=== PATIENT | male | born 1955 | race Caucasian/White ===

== ENCOUNTER 2020-10-09 17:02 | Observation (INO) ==
[2020-10-09] MEDS ORDERED: Naloxone 0.4 MG/ML INJ IVP PRN (20:28)
[2020-10-09] MEDS ORDERED: Dextrose Gel 15 GM/37.5 ML TUBE PO PRN ×2 (20:31)
[2020-10-09] MEDS ORDERED: *HR* Dextrose 50 % in Water (Vial) 50 ML VIAL IVP PRN (20:31)
[2020-10-09] MEDS ORDERED: D5% in Water 1,000 ML IVC PRN (20:31)
[2020-10-09] MEDS ORDERED: Perflutren Lipid Microsphere 1.3 ML in 0.9 % Sodium Chloride 8.7 ML IVP PRN (20:35)
[2020-10-09] MEDS ORDERED: Ondansetron 4 MG/2 ML VIAL IVP PRN (20:36)
[2020-10-09] MEDS ORDERED: Nitroglycerin 0.4 MG TAB.SUBL SL PRN (20:36)
[2020-10-09 21:41] LABS: Estimated Average Glucose 169 mg/dl; Hemoglobin A1C 7.5 %
[2020-10-09 21:56] LABS: Albumin 4.7 g/dL (3.5-5.7); Albumin/Globulin Ratio 1.5 (1.1-2.2); Bilirubin,Direct 0.1 mg/dL (0.0-0.2); Bilirubin,Indirect 0.5 mg/dL (0.0-1.0); Bilirubin,Total 0.6 mg/dL (0.3-1.0); Chol/HDL Ratio 3.8 (0-4.9); Globulin 3.1 g/dL (2.4-3.5); Phosphorous 3.5 mg/dL (2.7-4.5); Total Protein 7.8 g/dL (6.4-8.9)
[2020-10-09 22:09] LABS: Thyroid Stimulating Hormone 8.422 mcIU/mL (0.340-5.600)
[2020-10-09] MEDS: lisinopriL 10 MG TABLET PO SCH (22:31)
[2020-10-10 00:35] LABS: Basophils % 0.6 %; Eosinophils # 0.2 K/mcL (0.0-0.6); Eosinophils % 2.3 %; Hematocrit 43.5 % (37.5-50.1); Hemoglobin 14.9 g/dL (12.9-16.9); Immature Granulocytes % 0.3 % (0-4); Lymphocytes # 1.5 K/mcL (0.6-4.6); Mean Corpuscular HGB Conc 34.3 g/dL (31.6-35.5); Mean Corpuscular Hemoglobin 30.2 pg (28.0-33.3); Mean Corpuscular Volume 88.1 fL (83.0-100.0); Mean Platelet Volume 10.2 fL (9.4-12.4); Monocytes # 0.7 K/mcL (0.0-1.3); Monocytes % 9.8 %; Neutrophils # 4.5 K/mcL (1.6-8.9); Platelet Count 162 K/mcL (140-400); Red Blood Count 4.94 M/mcL (4.19-5.50); Red Cell Distribution Width 12.6 % (11.5-14.5)
[2020-10-10 00:53] LABS: BUN/Creatinine Ratio 13 (6-26); Blood Urea Nitrogen 14 mg/dL (8-23); Calcium 9.2 mg/dL (8.6-10.3); Carbon Dioxide 27 mEq/L (23-29); Chloride 104 mEq/L (98-107); Glucose 240 mg/dL (70-105); Osmolality,Calculated 300 (280-300); Potassium 3.9 mEq/L (3.5-5.1); Sodium 141 mEq/L (136-145); eGFR For African Americans > 60 (> 60); eGFR For Non-African Americans > 60 (> 60)
[2020-10-10 02:16] LABS: Amphetamine Screen,Urine Negative ng/mL (Cutoff=1000); Barbiturate Screen,Urine Negative ng/mL (Cutoff=200); Benzodiazepines Screen,Urine Negative ng/mL (Cutoff=200); Cannabinoid Screen,Urine Negative ng/mL (Cutoff = 50); Cocaine Screen,Urine Negative ng/mL (Cutoff= 300); Opiate Screen,Urine Negative ng/mL (Cutoff=300); Phencyclidine Screen,Urine Negative ng/mL (Cutoff=25)
[2020-10-10] MEDS ORDERED: Regadenoson 0.4 MG/5 ML SYRINGE IVP ONE (05:56)
[2020-10-10] MEDS: *HR* Heparin 5,000 UNIT/ML VIAL SQ SCH ×2 (06:13→17:47)
[2020-10-10] MEDS: Insulin LISPRO 300 UNITS/3 ML VIAL SUBQ SCH ×3 (09:38→17:46)
[2020-10-10] MEDS: lisinopriL 10 MG TABLET PO SCH (10:19)
[2020-10-10] MEDS: predniSONE 20 MG TABLET PO SCH ×2 (17:46→23:18)
[2020-10-11] MEDS: *HR* Heparin 5,000 UNIT/ML VIAL SQ SCH ×2 (05:06→16:31)
[2020-10-11] MEDS: predniSONE 20 MG TABLET PO SCH (05:06)
[2020-10-11] MEDS: Insulin LISPRO 300 UNITS/3 ML VIAL SUBQ SCH ×3 (07:26→16:39)
[2020-10-11] MEDS: lisinopriL 10 MG TABLET PO SCH (08:11)
[2020-10-11] MEDS: Aspirin 81 MG TAB.CHEW PO SCH (08:11)
[2020-10-11] MEDS ORDERED: ISOVUE-370 200 ML INFUS..BTL ONE ×2 (08:50→11:51)
[2020-10-11] MEDS ORDERED: *HR* Heparin 10,000 UNIT/10 ML VIAL ONE (08:50)
[2020-10-11] MEDS ORDERED: Nitroglycerin 1,000 MCG/5 ML VIAL IV ONE (08:50)
[2020-10-11] MEDS ORDERED: Heparin 1,000 UNITS/500 mL 500 ML ONE (08:50)
[2020-10-11] MEDS ORDERED: 0.9 % Sodium Chloride 2,000 ML ONE (08:50)
[2020-10-11 09:39] LABS: Basophils % 0.1 %; Hematocrit 45.7 % (37.5-50.1); Hemoglobin 15.7 g/dL (12.9-16.9); Immature Granulocytes % 0.3 % (0-4); Lymphocytes # 1.1 K/mcL (0.6-4.6); Lymphocytes % 8.3 %; Mean Corpuscular HGB Conc 34.4 g/dL (31.6-35.5); Mean Corpuscular Hemoglobin 29.8 pg (28.0-33.3); Mean Corpuscular Volume 86.7 fL (83.0-100.0); Mean Platelet Volume 10.4 fL (9.4-12.4); Monocytes # 0.3 K/mcL (0.0-1.3); Monocytes % 2.5 %; Neutrophils # 11.4 K/mcL (1.6-8.9); Platelet Count 184 K/mcL (140-400); Red Blood Count 5.27 M/mcL (4.19-5.50); Red Cell Distribution Width 12.6 % (11.5-14.5); Segmented Neutrophils % 88.8 %; White Blood Count 12.8 K/mcL (4.3-11.1)
[2020-10-11 10:09] LABS: BUN/Creatinine Ratio 21 (6-26); Blood Urea Nitrogen 21 mg/dL (8-23); Calcium 9.3 mg/dL (8.6-10.3); Carbon Dioxide 22 mEq/L (23-29); Chloride 104 mEq/L (98-107); Glucose 226 mg/dL (70-105); Osmolality,Calculated 292 (280-300); Potassium 4.1 mEq/L (3.5-5.1); Sodium 136 mEq/L (136-145); eGFR For African Americans > 60 (> 60); eGFR For Non-African Americans > 60 (> 60)
[2020-10-11] MEDS: Isosorbide MONOnitrate (24 HR) 30 MG TAB.ER.24H PO SCH (11:10)
[2020-10-11] MEDS ORDERED: *HR* FentaNYL (PF) 100 MCG/2 ML VIAL ONE (11:25)
[2020-10-11] MEDS ORDERED: *HR* Midazolam HCl 2 MG/2 ML VIAL ONE (11:25)
[2020-10-11] MEDS ORDERED: *HR* Atropine Sulfate 1 MG/10 ML SYRINGE ONE (11:48)
[2020-10-11] MEDS ORDERED: Tirofiban 12.5 MG/250ML 12.5 MG/250 ML BAG ONE (11:52)
[2020-10-11] MEDS ORDERED: *HR* Ticagrelor 90 MG TABLET ONE (12:07)
[2020-10-11] MEDS ORDERED: Tirofiban 12.5 MG/250ML 12.5 MG/250 ML BAG IVC SCH (13:00)
[2020-10-11] MEDS ORDERED: ROSUVASTATIN CALCIUM 10 MG PO SCH (21:00)
[2020-10-11] MEDS: *HR* Ticagrelor 90 MG TABLET PO SCH (22:06)
[2020-10-12] MEDS: *HR* Heparin 5,000 UNIT/ML VIAL SQ SCH (00:12)
[2020-10-12] MEDS: Insulin LISPRO 300 UNITS/3 ML VIAL SUBQ SCH (07:02)
[2020-10-12 07:16] VITALS: BP 124/82
[2020-10-12] MEDS: *HR* Ticagrelor 90 MG TABLET PO SCH (08:01)
[2020-10-12] MEDS: lisinopriL 10 MG TABLET PO SCH (08:01)
[2020-10-12] MEDS: Isosorbide MONOnitrate (24 HR) 30 MG TAB.ER.24H PO SCH (08:01)
[2020-10-12] MEDS: Aspirin 81 MG TAB.CHEW PO SCH (08:01)
== END 2020-10-12 13:12 | disposition home or self-care (01) ==
LOC: 3BNU → SUATTDRO 19:33
PROVIDERS: ADMIT Internal Medicine; ATTEND Registered Nurse